=== PATIENT | male | born 1975 | race Caucasian/White ===

== ENCOUNTER 2024-09-14 02:25 | Emergency (ER) | payer SELFPAY ==
[2024-09-14 02:35] VITALS: BP 154/90; PULSE 92; RESP 14; TEMP 36.3; O2SAT 96; BMI 27.4
--- NOTE | 2024-09-14 03:30 | ED_ITS ---
HPI - Nausea/Vomiting/Diarrhea General Chief complaint: Nausea/Vomiting/Diarrhea Stated complaint: diabetic and needs insulin Time Seen by Provider: 09/14/24 03:16 Source: patient Mode of arrival: Ambulatory History of Present Illness HPI Narrative: 48-year-old male with history of diabetes, having been prescribed metformin and insulin in the past, has been off medications for years, we would like to start back on medications, seemed to have concerns about the status of his diabetes. Sugars sometimes 300s when he checks. He seems interested in getting back on diabetes medications and getting better control of his diabetes. He is not aware of any diabetic complications in his heart brain kidneys arteries skin so far. Related Data Previous Rx's Medication Instructions Recorded metformin 500 mg tablet 500 mg PO BID #60 tabs 09/14/24 Patient History Social History Smoking Status: Never smoker Smoking Status: Never smoker Exam Narrative Exam Narrative: GENERAL: Well-developed patient, in mild distress. HEAD: Atraumatic. Normocephalic. EYES: Pupils equal round and reactive. Extraocular motions intact. No scleral icterus. No injection or drainage. ENT: Nose without bleeding, purulent drainage. Throat without erythema, tonsillar hypertrophy or exudate. Airway patent. NECK: Trachea midline. Non tender CARDIOVASCULAR: Regular rate and rhythm without murmurs, gallops, or rubs. RESPIRATORY: Clear to auscultation. Breath sounds equal bilaterally. No wheezes, rales, or rhonchi. GASTROINTESTINAL: Abdomen soft, non-tender, nondistended. EXTREMITIES: No edema or joint tenderness. BACK: Nontender without deformity or crepitance. No flank tenderness. NEURO: AOx3. Motor functions grossly nonfocal SKIN: No rash or erythema of visible areas Initial Vital Signs Initial Vital Signs: Vital Signs Temperature 97.4 F L 09/14/24 02:35 Pulse Rate 92 H 09/14/24 02:35 Respiratory Rate 14 09/14/24 02:35 Blood Pressure 154/90 H 09/14/24 02:35 Pulse Oximetry 96 09/14/24 02:35 Oxygen Delivery Method Room Air 09/14/24 02:35 Course Orders Ordered: ED Orders 09/14/24 03:36 CBC Auto Diff [Complete Blood Count AUTO DIFF] Stat CMP [Comprehensive Metabolic Panel] Stat Hemoglobin A1C% w Est Avg Glu Stat Vital Signs Vital signs: Vital Signs - 8 hr 09/14/24 02:35 Temperature 97.4 F L Pulse Rate 92 H Respiratory Rate 14 Blood Pressure 154/90 H Pulse Oximetry 96 Oxygen Delivery Method Room Air MDM - Nausea/Vomiting/Diarrhea Lab Data Attestation: I reviewed the patient's lab results. Lab results narrative: Glucose 345 with normal AGap. Normal GFR and LFTs, no increased WBC 09/14/24 03:20 09/14/24 03:20 Labs: Lab Results 09/14/24 09/14/24 Range/Units 03:20 03:21 WBC 10.5 (4.5-11.0) X10^3/uL RBC 5.83 (4.5-5.9) X10^6/uL Hgb 16.4 (13.5-17.5) g/dL Hct 47.9 (41-53) % MCV 82.1 (80-100) fL MCH 28.1 (26-34) PG MCHC 34.2 (30-36) % RDW 13.8 (11.6-14.8) % Plt Count 193 (150-400) X10^3/uL Neut % (Auto) 85.8 H (50-75) % Lymph % (Auto) 8.6 L (25-40) % [place] % (Auto) 4.3 (3-14) % Eos % (Auto) 0.9 L (2-4) % Baso % (Auto) 0.4 (0-2) % Neut # (Auto) 9000 H (3570-1901) /uL Lymph # (Auto) 900 L (0903-9923) /uL [place] # (Auto) 500 (0-900) /uL Eos # (Auto) 100 (0-450) /uL Baso # (Auto) 0 (0-100) /uL Sodium 135 L (137-145) mmol/L Potassium 4.2 (3.4-5.1) mmol/L Chloride 99 (98-107) mmol/L Carbon Dioxide 26 (22-32) mmol/L BUN 15 (9-20) mg/dL Creatinine 0.89 (0.66-1.25) mg/dL Estimated GFR > 60 (>60) mL/min BUN/Creatinine Ratio 16.9 (6-22) Glucose 345 H (70-100) mg/dL Hemoglobin A1c 11.8 H (4.0-6.0) % Calcium 9.4 (8.4-10.2) mg/dL Total Bilirubin 0.6 (0.2-1.3) mg/dL AST 32 (17-59) IU/L ALT 37 (<50) IU/L Alkaline Phosphatase 61 (38-126) U/L Total Protein 7.2 (6.3-8.2) g/dL Albumin 4.5 (3.5-5.0) g/dL Globulin 2.7 (1.7-4.1) g/dL Albumin/Globulin Ratio 1.7 (1.0-2.8) Urine Color Cancelled Urine Appearance Cancelled Urine pH Cancelled Ur Specific [place] Cancelled Urine Protein Cancelled Urine Glucose (UA) Cancelled Urine Ketones Cancelled Urine Occult Blood Cancelled Urine Nitrate Cancelled Urine Bilirubin Cancelled Urine Urobilinogen Cancelled Ur Leukocyte Esterase Cancelled Urine RBC Cancelled Urine WBC Cancelled Ur Squamous Epith Cells Cancelled Ur Transition Epith Cell Cancelled Ur Renal Epithelial Cell Cancelled Calcium Oxalate Crystal Cancelled Uric Acid Crystals Cancelled Triple Phos Crystals Cancelled Other Crystals Cancelled Amorphous Sediment Cancelled Urine Bacteria Cancelled Hyaline Casts Cancelled Granular Casts Cancelled RBC Casts Cancelled WBC Casts Cancelled Other Casts Cancelled Urine Mucus Cancelled Urine Trichomonas Cancelled Urine Yeast Cancelled Urine Sperm Cancelled Ur Culture Indicated? Cancelled Micro UA Comment Cancelled Vol Urine Centrifuged Cancelled Urine Dip Bedside Urine Glucose 1000 mg/dl Bedside Urine Bilirubin - Negative Bedside Urine Ketone - Negative Urine Specific [place] 1.020 Bedside Urine Occult Blood - Negative Bedside Urine pH 6.0 Bedside Urine Protein - Negative Bedside Urine Urobilinogen - Negative Bedside Urine Nitrite - Negative Bedside Urine Leukocytes - Negative Esterase MDM Narrative Medical decision making narrative: 48 yo male with history diabetes mellitus would like to restart medications and get better control of his diabetes. Sugars when occasionally checked are usually inthe 300s. Used to be on oral metformin with insulin, no meds for years. Afebrile and SIRS screen negative. Glucose 345 with normal AGap. HbA1c 11.8 quite high, likely baseline blood glucose 300s. GFR and LFTs okay. Rx sent for metformin restart, trial of 500mg daily for 1-2 weeks, then try increased dose 500mg twice daily, further titration of DM medication regimen in follow-up. We discussed DM glucose control, usp DM complications, need for good control, avoidance of hypoglyemia, titration of medications for better goal HbA1c over time, home glucose monitoring, diabetic nurse education, diet/nutriton counseling, footcare and skin care, eye screening, etc. Given contact info to call for establish care visit with new PCP. Home with family. Discharge Plan Departure Patient Disposition: Home Clinical Impression: Hyperglycemia, Diabetes mellitus Instructions: DI for Diabetes Type 2 Activity Restrictions/Additional Instructions: History of diabetes, concern about long-term diabetes Health, labs sent for baseline kidney function and urine studies. Hemoglobin A1c long term acute care registered nurse recent months control was elevated at 11.8, reflecting a high average daily glucose level. This is not healthy in the usp, increasing your risk of diabetic complications, increased risk of heart attack, increased risk of stroke, increased risks of kidney failure/disease, increased risk of retinopathy in vision loss, increased risk of peripheral artery disease and poor wound healing. It is important to have good glucose control. You had been on metformin and insulin in the past. Restart metformin 500 mg once daily for the next week or 2, then increased to 500 mg twice daily. Sometimes insulin might be added to this regimen but you should be able to do this safely and deliberately for increased control of blood glucose average. Avoid alcohol while taking metformin. Follow up establish care visit with new provider, call [phone], to make an appointment with provider to establish care. Return earlier to this/nearest emergency department for any change worsening symptoms or any concerns prior Thank you for allowing our team to evaluate you today. Prescriptions: New metformin 500 mg tablet 500 mg PO BID Qty: 60 0RF Stand Alone Forms: Patient Portal/API/Survey
[2024-09-14 03:45] LABS: Add Manual Diff / Slide Review NO; Basophils Absolute Auto 0 /uL (0-100); Basophils Percent Auto 0.4 % (0-2); Eosinophils Absolute Auto 100 /uL (0-450); Eosinophils Percent Auto 0.9 % (2-4); Hematocrit 47.9 % (41-53); Hemoglobin 16.4 g/dL (13.5-17.5); Lymphocytes Absolute Auto 900 /uL (1100-4500); Lymphocytes Percent Auto 8.6 % (25-40); Mean Corpuscular HGB Conc 34.2 % (30-36); Mean Corpuscular Hemoglobin 28.1 PG (26-34); Mean Corpuscular Volume 82.1 fL (80-100); Monocytes Absolute Auto 500 /uL (0-900); Monocytes Percent Auto 4.3 % (3-14); Neutrophils Absolute Auto 9000 /uL (1500-7000); Neutrophils Percent Auto 85.8 % (50-75); Platelet Count 193 X10^3/uL (150-400); Red Blood Cell Count 5.83 X10^6/uL (4.5-5.9); Red Cell Distribution Width 13.8 % (11.6-14.8); White Blood Cell Count 10.5 X10^3/uL (4.5-11.0)
[2024-09-14 03:52] LABS: Alanine Aminotransferase 37 IU/L (<50); Albumin 4.5 g/dL (3.5-5.0); Albumin Globulin Ratio 1.7 (1.0-2.8); Alkaline Phosphatase 61 U/L (38-126); Aspartate Aminotransferase 32 IU/L (17-59); BUN Creatinine Ratio 16.9 (6-22); Bilirubin Total 0.6 mg/dL (0.2-1.3); Blood Urea Nitrogen 15 mg/dL (9-20); Calcium 9.4 mg/dL (8.4-10.2); Carbon Dioxide 26 mmol/L (22-32); Chloride 99 mmol/L (98-107); Estimated Glomerular Filt Rate > 60 mL/min (>60); Globulin 2.7 g/dL (1.7-4.1); Glucose 345 mg/dL (70-100); HEMOLYSIS 34 (0-50); Potassium 4.2 mmol/L (3.4-5.1); Sodium 135 mmol/L (137-145); Total Protein 7.2 g/dL (6.3-8.2)
[2024-09-14 04:02] LABS: Hemoglobin A1C% w Est Avg Glu 11.8 % (4.0-6.0)
[2024-09-14 04:18] VITALS: BP 146/87; PULSE 80; RESP 16; O2SAT 97
== END 2024-09-14 04:21 | disposition home or self-care (01) ==
PROVIDERS: Emergency Provider Emergency Medicine
DX: E11.65 Type 2 diabetes mellitus with hyperglycemia (principal)
CPT/HCPCS: 80053; 81003; 83036; 85025; 99282; 99283